=== PATIENT | female | born 1990 | race Caucasian/White ===

== ENCOUNTER 2017-12-31 20:19 | Inpatient (IN) | payer OTHER ==
[2017-12-31 23:30] LABS: ADD MAN DIFF? NO
[2017-12-31 23:33] LABS: WHITE BLOOD COUNT 8.4 10^3/ul (4.8-10.8)
[2017-12-31 23:33] LABS: BASOPHILS % 0.5 % (0.0-2.0); EOSINOPHILS # 0.1 10^3/ul (0.0-0.5); EOSINOPHILS % 1.7 % (0.0-7.0); HEMATOCRIT 39.5 % (37.0-47.0); HEMOGLOBIN 13.4 g/dl (12.0-16.0); LYMPHOCYTES # 2.1 10^3/ul (0.8-2.9); LYMPHOCYTES % 24.6 % (15.0-51.0); MEAN CORPUSCULAR HEMOGLOBIN 30.2 pg (29.0-33.0); MEAN CORPUSCULAR HGB CONC 33.9 g/dl (32.0-37.0); MEAN PLATELET VOLUME 10.8 fl (7.4-10.4); MONOCYTE # 0.7 10^3/ul (0.3-0.9); MONOCYTES % 8.6 % (0.0-11.0); NEUTROPHIL # 5.4 10^3/ul (1.6-7.5); NEUTROPHILS % 64.4 % (39.0-77.0); PLATELET COUNT 288 10^3/UL (140-415); RED BLOOD COUNT 4.44 10^6/ul (4.20-5.40); RED CELL DISTRIBUTION WIDTH 12.4 % (11.5-14.5)
[2017-12-31 23:48] LABS: PROTIME 13.3 Sec (11.9-14.9)
[2017-12-31 23:49] LABS: PARTIAL THROMBOPLASTIN TIME 33.5 Sec (25.0-35.0)
[2017-12-31 23:52] LABS: ANION GAP 15 (8-16); BLOOD UREA NITROGEN 13 mg/dl (7-20); CALCIUM 9.3 mg/dl (8.4-10.2); CARBON DIOXIDE 26 mmol/L (21-31); CHLORIDE 104 mmol/L (97-110); CREATININE 0.62 mg/dl (0.44-1.00); GLUCOSE 101 mg/dl (70-220); POTASSIUM 3.9 mmol/L (3.5-5.1); SODIUM 141 mmol/L (135-144)
[2018-01-01] MEDS ORDERED: NACL 0.9% 3 ML SYG IV (01:00)
[2018-01-01] MEDS ORDERED: DOCUSATE SODIUM 100 MG CAP PO (01:00)
[2018-01-01] MEDS ORDERED: BISACODYL (EC) 5 MG TAB PO (01:00)
[2018-01-01] MEDS: ONDANSETRON 4 MG INJ IV (01:18)
[2018-01-01] MEDS: morphine 4 MG/ML VIAL IV (01:18)
[2018-01-01] MEDS: HYDROCODONE/APAP (5/325) TAB PO ×2 (02:30→19:44)
[2018-01-01] MEDS: SOD CHLORIDE 0.9% 1,000 ML IV ×2 (04:13→13:51)
[2018-01-01] MEDS: MECLIZINE 12.5 MG TAB PO (09:23)
[2018-01-01 09:40] LABS: C-REACTIVE PROTEIN < 0.5 mg/dl (0.0-0.9)
[2018-01-01] MEDS ORDERED: KETOROLAC 30 MG INJ IV (10:30)
[2018-01-01 11:12] LABS: ERYTHROCYTE SEDIMENTATION RATE 5 mm/Hr (0-20)
[2018-01-01 11:57] LABS: CANCER ANTIGEN 125 5.6 U/ml (0.0-35.0); CARCINOEMBRYONIC ANTIGEN 0.4 ng/ml (0.0-5.0)
[2018-01-01] MEDS: IOHEXOL 300MG/ML 150 ML BTL (12:12)
[2018-01-01] MEDS: SOD CHLORIDE 0.9% 100 ML (12:13)
[2018-01-02] MEDS: SOD CHLORIDE 0.9% 1,000 ML IV (01:50)
[2018-01-02 06:47] LABS: ADD MAN DIFF? NO
[2018-01-02 06:54] LABS: BASOPHIL # 0.1 10^3/ul (0.0-0.1); BASOPHILS % 0.9 % (0.0-2.0); EOSINOPHILS # 0.3 10^3/ul (0.0-0.5); EOSINOPHILS % 3.9 % (0.0-7.0); HEMATOCRIT 37.5 % (37.0-47.0); HEMOGLOBIN 12.7 g/dl (12.0-16.0); LYMPHOCYTES # 2.5 10^3/ul (0.8-2.9); LYMPHOCYTES % 36.6 % (15.0-51.0); MEAN CORPUSCULAR HEMOGLOBIN 30.2 pg (29.0-33.0); MEAN CORPUSCULAR HGB CONC 33.9 g/dl (32.0-37.0); MEAN CORPUSCULAR VOLUME 89.1 fl (82.0-101.0); MEAN PLATELET VOLUME 11.1 fl (7.4-10.4); MONOCYTE # 0.7 10^3/ul (0.3-0.9); MONOCYTES % 10.9 % (0.0-11.0); NEUTROPHIL # 3.2 10^3/ul (1.6-7.5); NEUTROPHILS % 47.4 % (39.0-77.0); PLATELET COUNT 260 10^3/UL (140-415); RED BLOOD COUNT 4.21 10^6/ul (4.20-5.40); RED CELL DISTRIBUTION WIDTH 12.5 % (11.5-14.5)
[2018-01-02 06:54] LABS: WHITE BLOOD COUNT 6.7 10^3/ul (4.8-10.8)
[2018-01-02 07:13] LABS: ALANINE AMINOTRANSFERASE 24 IU/L (13-69); ALBUMIN 3.5 g/dl (3.3-4.9); ALKALINE PHOSPHATASE 45 IU/L (42-121); ANION GAP 13 (8-16); ASPARTATE AMINO TRANSFERASE 20 IU/L (15-46); BILIRUBIN,INDIRECT 0.3 mg/dl (0-1.1); BILIRUBIN,TOTAL 0.3 mg/dl (0.2-1.3); BLOOD UREA NITROGEN 15 mg/dl (7-20); CALCIUM 8.6 mg/dl (8.4-10.2); CARBON DIOXIDE 26 mmol/L (21-31); CHLORIDE 105 mmol/L (97-110); GLUCOSE 92 mg/dl (70-220); MAGNESIUM 1.6 mg/dl (1.7-2.5); POTASSIUM 4.2 mmol/L (3.5-5.1); SODIUM 140 mmol/L (135-144); TOTAL PROTEIN 6.4 g/dl (6.1-8.1)
[2018-01-02 07:42] LABS: THYROID STIMULATING HORMONE 0.889 MIU/L (0.465-4.680)
[2018-01-02] MEDS: ONDANSETRON 4 MG INJ IV (07:53)
[2018-01-02] MEDS: HYDROCODONE/APAP (5/325) TAB PO (07:53)
[2018-01-02 08:24] LABS: HEMOGLOBIN A1C 5.2 % (0-5.9)
[2018-01-02] MEDS ORDERED: DEXAMETHASONE 4 MG TAB PO (09:00)
[2018-01-02] MEDS: MAGNESIUM OXIDE 400 MG TAB PO (09:57)
[2018-01-02] MEDS: DEXAMETHASONE 10 MG/ML 1 ML INJ IV (09:57)
== END 2018-01-02 14:55 | disposition home or self-care (01) | DRG 55 ==
LOC: PP2 01-01 02:32 → FTE 20:19 → TEL 01-01 00:05 → FTE 20:19 → PP2 01-01 11:53
DX: D33.1 Benign neoplasm of brain, infratentorial (principal); R51 Headache; R42 Dizziness and giddiness; R26.81 Unsteadiness on feet
CPT/HCPCS: 36415; 70450; 70553; 71045; 71260; 74177; 80048; 80053; 81025; 82378; 83036; 83735; 84443; 85025; 85610; 85651; 85730; 86140; 86304; 96374; 96375; 99285-25

== ENCOUNTER 2018-01-10 13:55 | Outpatient (CLI) | payer OTHER | END 2018-01-10 17:00 | disposition home or self-care (01) | LOC: DCC 13:55 | DX: G93.9 Disorder of brain, unspecified (principal); Z83.3 Family history of diabetes mellitus; Z82.49 Family history of ischemic heart disease and other diseases of the circulatory system | CPT/HCPCS: G0463 ==

== ENCOUNTER 2018-01-24 13:34 | Outpatient (CLI) | payer OTHER | END 2018-01-25 14:11 | disposition home or self-care (01) | LOC: DCC 13:34 | DX: G93.9 Disorder of brain, unspecified (principal); R63.5 Abnormal weight gain; M25.572 Pain in left ankle and joints of left foot; M25.571 Pain in right ankle and joints of right foot | CPT/HCPCS: G0463 ==

== ENCOUNTER 2018-02-05 13:52 | Emergency (ER) | payer OTHER ==
[2018-02-05] MEDS: IBUPROFEN 200 MG TAB PO (15:29)
[2018-02-05] MEDS: HYDROCODONE/APAP (5/325) TAB PO (15:29)
== END 2018-02-05 16:38 | disposition home or self-care (01) ==
LOC: FTE 13:52
DX: G93.89 Other specified disorders of brain (principal); R40.2142 Coma scale, eyes open, spontaneous, at arrival to emergency department; R40.2252 Coma scale, best verbal response, oriented, at arrival to emergency department; R40.2362 Coma scale, best motor response, obeys commands, at arrival to emergency department
CPT/HCPCS: 70450; 81025; 99284-25

== ENCOUNTER 2018-02-19 19:28 | Emergency (ER) | payer OTHER ==
[2018-02-19] MEDS: ONDANSETRON 4 MG INJ IV (21:53)
[2018-02-19] MEDS: SOD CHLORIDE 0.9% 1,000 ML IV (21:53)
[2018-02-19] MEDS: morphine 4 MG/ML VIAL IV (21:53)
[2018-02-19 21:59] LABS: ADD MAN DIFF? NO
[2018-02-19 22:06] LABS: WHITE BLOOD COUNT 6.5 10^3/ul (4.8-10.8)
[2018-02-19 22:06] LABS: BASOPHILS % 0.6 % (0.0-2.0); EOSINOPHILS # 0.1 10^3/ul (0.0-0.5); EOSINOPHILS % 0.9 % (0.0-7.0); HEMATOCRIT 37.6 % (37.0-47.0); HEMOGLOBIN 12.7 g/dl (12.0-16.0); LYMPHOCYTES # 1.5 10^3/ul (0.8-2.9); LYMPHOCYTES % 23.8 % (15.0-51.0); MEAN CORPUSCULAR HEMOGLOBIN 30.6 pg (29.0-33.0); MEAN CORPUSCULAR HGB CONC 33.8 g/dl (32.0-37.0); MEAN CORPUSCULAR VOLUME 90.6 fl (82.0-101.0); MEAN PLATELET VOLUME 10.1 fl (7.4-10.4); MONOCYTE # 0.6 10^3/ul (0.3-0.9); MONOCYTES % 9.3 % (0.0-11.0); PLATELET COUNT 286 10^3/UL (140-415); RED BLOOD COUNT 4.15 10^6/ul (4.20-5.40); RED CELL DISTRIBUTION WIDTH 12.7 % (11.5-14.5)
[2018-02-19 22:25] LABS: INR 0.83; PROTIME 11.5 Sec (11.9-14.9); PT RATIO 0.9
[2018-02-19 22:26] LABS: PARTIAL THROMBOPLASTIN TIME 30.1 Sec (25.0-35.0)
[2018-02-19 22:32] LABS: ANION GAP 11 (8-16); BLOOD UREA NITROGEN 11 mg/dl (7-20); CALCIUM 9.2 mg/dl (8.4-10.2); CARBON DIOXIDE 28 mmol/L (21-31); CHLORIDE 111 mmol/L (97-110); CREATININE 0.73 mg/dl (0.44-1.00); GLUCOSE 100 mg/dl (70-220); POTASSIUM 3.7 mmol/L (3.5-5.1); SODIUM 146 mmol/L (135-144)
== END 2018-02-20 00:39 | disposition short-term general hospital (02) ==
LOC: E/R 02-20 00:39 → FTE 19:28
DX: G93.89 Other specified disorders of brain (principal); R55 Syncope and collapse
CPT/HCPCS: 36415; 80048; 85025; 85610; 85730; 96374; 96375; 99285-25

== ENCOUNTER 2018-07-29 18:57 | Emergency (ER) | payer OTHER ==
[2018-07-29 22:24] LABS: ADD MAN DIFF? NO
[2018-07-29 22:27] LABS: WHITE BLOOD COUNT 6.9 10^3/ul (4.8-10.8)
[2018-07-29 22:27] LABS: BASOPHILS % 0.4 % (0.0-2.0); EOSINOPHILS # 0.2 10^3/ul (0.0-0.5); EOSINOPHILS % 2.5 % (0.0-7.0); HEMATOCRIT 40.2 % (37.0-47.0); HEMOGLOBIN 13.4 g/dl (12.0-16.0); LYMPHOCYTES # 1.7 10^3/ul (0.8-2.9); LYMPHOCYTES % 24.7 % (15.0-51.0); MEAN CORPUSCULAR HEMOGLOBIN 29.5 pg (29.0-33.0); MEAN CORPUSCULAR HGB CONC 33.3 g/dl (32.0-37.0); MEAN CORPUSCULAR VOLUME 88.5 fl (82.0-101.0); MEAN PLATELET VOLUME 10.7 fl (7.4-10.4); MONOCYTE # 0.6 10^3/ul (0.3-0.9); NEUTROPHIL # 4.4 10^3/ul (1.6-7.5); NEUTROPHILS % 64.1 % (39.0-77.0); PLATELET COUNT 346 10^3/UL (140-415); RED BLOOD COUNT 4.54 10^6/ul (4.20-5.40); RED CELL DISTRIBUTION WIDTH 12.8 % (11.5-14.5)
[2018-07-29] MEDS: SOD CHLORIDE 0.9% 500 ML IV (22:27)
[2018-07-29] MEDS: ONDANSETRON 4 MG INJ IV (22:27)
[2018-07-29] MEDS: morphine 4 MG/ML VIAL IV (22:27)
[2018-07-29 22:49] LABS: ANION GAP 9 (5-13); BLOOD UREA NITROGEN 10 mg/dl (7-20); CALCIUM 9.4 mg/dl (8.4-10.2); CARBON DIOXIDE 26 mmol/L (21-31); CHLORIDE 104 mmol/L (97-110); CREATININE 0.57 mg/dl (0.44-1.00); Estimated GFR > 60 mL/min (>60); GLUCOSE 97 mg/dl (70-220); POTASSIUM 4.4 mmol/L (3.5-5.1); SODIUM 139 mmol/L (135-144)
[2018-07-29 22:52] LABS: INR 0.91; PROTIME 12.3 Sec (11.9-14.9)
[2018-07-29 23:01] LABS: TROPONIN-I < 0.012 ng/ml (0.000-0.120)
== END 2018-07-29 23:41 | disposition home or self-care (01) ==
LOC: E/R 18:57
DX: R51 Headache (principal); R07.9 Chest pain, unspecified
CPT/HCPCS: 36415; 70450; 71045; 80048; 84484; 85025; 85610; 85730; 93005; 96374; 96375; 99285-25

== ENCOUNTER 2018-09-06 10:57 | Emergency (ER) | payer OTHER ==
[2018-09-06] MEDS: ACETAMINOPHEN 325 MG TAB PO (11:33)
== END 2018-09-06 11:30 | disposition home or self-care (01) ==
LOC: FTE 10:57
DX: J06.9 Acute upper respiratory infection, unspecified (principal)
CPT/HCPCS: 99283; Z7502

== ENCOUNTER 2019-01-06 14:56 | Emergency (ER) | payer OTHER ==
[2019-01-06] MEDS: IBUPROFEN 600 MG TAB PO (20:24)
[2019-01-06] MEDS: PSEUDOEPHEDRINE 30 MG TAB PO (20:35)
== END 2019-01-06 20:37 | disposition home or self-care (01) ==
LOC: FTE 14:56
DX: R51 Headache (principal); H93.8X9 Other specified disorders of ear, unspecified ear
CPT/HCPCS: 70450; 81025; 99284-25